=== PATIENT | male | born 1955 | race Caucasian/White ===

== ENCOUNTER → 2018-10-02 | Outpatient (CLI) | payer OTHER | LOC: FIMAGING 07:56 | PROVIDERS: ATTEND Clinical Nurse Specialist Adult Health | DX: M99.71 Connective tissue and disc stenosis of intervertebral foramina of cervical region (principal); M50.121 Cervical disc disorder at C4-C5 level with radiculopathy; M46.92 Unspecified inflammatory spondylopathy, cervical region ==

== ENCOUNTER → 2018-10-28 | Outpatient (CLI) | payer OTHER | LOC: FIMAGING 08:25 | PROVIDERS: ATTEND Clinical Nurse Specialist Adult Health | DX: R05 Cough (principal); Z01.84 Encounter for antibody response examination; J40 Bronchitis, not specified as acute or chronic ==